=== PATIENT | male | born 1940 ===

== ENCOUNTER → 2017-10-07 | Outpatient (CLI) | payer MEDICARE ==
--- NOTE | 2017-10-04 09:53 | MH ---
cc: Jay Jay Aj MD DATE OF ADMISSION: 10/07/2017 ADMISSION DIAGNOSIS: Narrow anterior chamber angle with potential angle closure, both eyes. HISTORY OF PRESENT ILLNESS: This 76-year-old white male is coming to [facility] for the purpose of a laser peripheral iridectomy of the right eye. He was found to have narrow anterior chamber angles with potential angle closure and elected to have a laser peripheral iridectomy, starting with the right eye at this time and the left eye in a couple of weeks. PAST MEDICAL HISTORY: The patient has a history of hypertension, but denies other medical illness. PAST SURGICAL HISTORY: Appendectomy in 1958. DAILY MEDICATIONS: Include: 1. Lisinopril. 2. Terazosin. 3. Atorvastatin. 4. HydroEye supplement. 5. Retaine eyedrops. 6. Claritin, 7. HypoChlor wash. ALLERGIES: NO KNOWN ALLERGIES. SOCIAL HISTORY: Noncontributory. FAMILY HISTORY: Noncontributory. REVIEW OF SYSTEMS: Noncontributory. OCULAR EXAMINATION: The patient's visual acuity with correction is 20/30 -1 in the right eye and 20/25 -2 in the left. Visual monk were full to confrontation testing. Extraocular muscle exam reveals full versions with orthophoric distance and near. Pupils are 3 mm, equal, round, and reactive to light, without afferent defect. Anterior segment examination did reveal very narrow anterior chamber angles with potential angle closure confirmed with a second opinion by Dr. Thomas, a manpower development specialist manager, who also recommended laser peripheral iridectomy. The patient's lens has mild cataract changes of nuclear sclerosis and cortical type. Intraocular pressure is 20 in the right eye and 19 in the left by applanation tonometry. Dilated fundus exam revealed sharp disc with cup-to-disc ratio of 0.3 bilaterally. The macula was clear and a posterior vitreous detachment is present bilaterally. A 1 x 2 disc diameter choroidal nevus with drusen was present superior to the optic nerve in the background of the left eye. IMPRESSION: 1. Narrow anterior chamber angles with potential angle closure. 2. Mild cataracts. 3. Posterior vitreous detachment, both eyes. 4. Choroidal nevus, left eye. PLAN: Laser peripheral iridectomy of the right eye through [facility]. MD HARMAN Maria/MICHELLE , 08:00 AM , 08:29 AM
[~2017-10-07] MED LIST: BALANCED SALT SOLN OPHT IRRIG 15 ML BTL ONE; HYPROMELLOSE 0.3 % OPTH GEL 10 GM (0.34 FL OZ) TUBE ONE; PILOCARPINE HCL 2% OPHT SOLN 15 ML BTL ONE; PROPARACAINE HCL 0.5% OPHT SOLN 15 ML BTL ONE; prednisoLONE ACETATE 1% OPHT SUSP 5 ML BTL ONE
--- NOTE | 2017-10-07 11:54 | MP ---
cc: Jay Jay Aj MD DATE OF OPERATION: 10/07/2017 PREOPERATIVE DIAGNOSIS: Narrow anterior chamber angle, right eye. POSTOPERATIVE DIAGNOSIS: Narrow anterior chamber angle, right eye. OPERATION: Laser peripheral iridectomy, right eye. ANESTHESIA: Topical. COMPLICATIONS: None. INDICATIONS FOR PROCEDURE: See History and Physical previously dictated. PROCEDURE: The patient arrived at [facility]. Blood pressure was 143/62, pulse 58, respirations 16. A drop of Alphagan P and 2% Pilocarpine were instilled in the right eye. A drop of Ophthaine was instilled in the right eye and a laser iridectomy lens was placed on the anterior surface of the right cornea. Peripheral iridectomy was carried out utilizing the following procedure: Argon laser was first utilized forming a crater in the iris. 14 exposures of 400 milliwatts were used with a spot size of 200 microns for 0.2 seconds. Then 74 exposures of 900 milliwatts were used with the spot size of 50 microns. Following this, YAG laser was utilized to complete the iridectomy. 13 exposures of 5.1 Millijoules were utilized by the YAG laser to complete the iridectomy. An adequate opening was seen at this time. The iridectomy lens was removed and the eye was irrigated. A drop of Alphagan P was instilled. The patient was given a prescription for Pred Forte to be utilized four times a day, and has an appointment for follow-up on the first postoperative day in my office. The patient left the [facility] in satisfactory condition. MD HARMAN Maria/DL , 10:46 AM , 11:53 AM
== END ==
LOC: PHSDC 09:45
PROVIDERS: ATTEND Ophthalmology
DX: H40.031 Anatomical narrow angle, right eye (principal); I10 Essential (primary) hypertension; H43.813 Vitreous degeneration, bilateral; D31.32 Benign neoplasm of left choroid; H26.9 Unspecified cataract

== ENCOUNTER → 2017-10-21 | Outpatient (CLI) | DX: H40.032 Anatomical narrow angle, left eye (principal); H43.813 Vitreous degeneration, bilateral; D31.32 Benign neoplasm of left choroid; I10 Essential (primary) hypertension; Z79.82 Long term (current) use of aspirin ==